=== PATIENT | male | born 1985 | race Caucasian/White ===

== ENCOUNTER 2018-11-25 17:23 | Emergency (ER) | payer SELFPAY ==
[2018-11-25 17:27] VITALS: BP 119/67; PULSE 60; TEMP 97.8; BMI 27.2
--- NOTE | 2018-11-25 18:26 | PDOC ---
History of Present Illness - General Chief Complaint: Pain, Acute Stated Complaint: ELBOW AND NECK PAIN Time Seen by Provider: 11/25/18 18:08 History Source: Patient Exam Limitations: Clinical Condition - History of Present Illness Initial Comments: 11/25/18 18:21 Patient with no significant past medical history present with complaint of pain to medial side of bilateral elbows for 2 weeks without any trauma or injury to elbow. Patient also reported pain to posterior neck area which he feels might be from neck spasm. Patient denies any trauma or injury. Patient took Tylenol for symptoms by report did not improved symptoms. Patient denies headache, dizziness, nausea or vomiting or change in vision. Patient denies any other symptoms Timing/Duration: other (2 weeks) Past History - Past Medical History Allergies/Adverse Reactions: Allergies Allergy/AdvReac Type Severity Reaction Status Date / Time No Known Allergies Allergy Verified 11/25/18 16:10 Home Medications: Ambulatory Orders Methocarbamol [Robaxin -] 500 mg PO BID #14 tablet 11/25/18 Naproxen 500 mg PO BID PRN #20 tablet 11/25/18 COPD: No GI Disorders: No Kidney Stones: No Thyroid Disease: No - Surgical History GI Surgery: No Neurologic Surgery: No - Immunization History Immunization Up to Date: No - Suicide/Smoking/Psychosocial Hx Smoking History: Never smoked Have you smoked in the past 12 months: No Information on smoking cessation initiated: No Hx Alcohol Use: No Drug/Substance Use Hx: No Review of Systems - Review of Systems Able to Perform ROS?: Yes Is the patient limited Albanian proficient: No Constitutional: No: Weakness HEENTM: No: Blurred Vision, Recent change in vision, Double Vision Respiratory: No: Symptoms reported Cardiac (ROS): No: Symptoms Reported ABD/GI: No: Nausea, Vomiting Musculoskeletal: Yes: See HPI, Joint Pain (b/l elbows), Muscle Pain (medial side of b/l elbows), Neck Pain (mild posterior neck aching pain), Joint Stiffness (neck). No: Joint Swelling, Muscle Weakness All Other Systems: Reviewed and Negative *Physical Exam - Vital Signs Last Vital Signs Temp Pulse Resp BP Pulse Ox 97.8 F 60 18 119/67 98 11/25/18 17:25 11/25/18 17:25 11/25/18 17:25 11/25/18 17:25 11/25/18 17:25 - Physical Exam Comments: 11/25/18 18:24 GENERAL: Well developed, well nourished. Awake and alert. No acute distress. CARDIOVASCULAR: Regular rate and rhythm. No murmurs, rubs, or gallops. PULMONARY: No evidence of respiratory distress. Lungs clear to auscultation bilaterally. No wheezing, rales or rhonchi. ABDOMINAL: Soft. Non-tender. Non-distended. No rebound or guarding. No organomegaly. Normoactive bowel sounds MUSCULOSKELETAL : mild tenderness medial epicondyles of b/l elbows. No bony deformities. no elbows swelling and effusion. FROM of neck. no tenderness to cervical spine EXTREMITIES: No cyanosis. No clubbing. No edema. SKIN: Warm and dry. Normal capillary refill. NEUROLOGICAL: Alert, awake, appropriate. No motor deficits in the lower extremities. Gait is normal without ataxia. PSYCHIATRIC: Cooperative. Good eye contact. Appropriate mood and affect. General Appearance: Yes: Nourished, Appropriately Dressed. No: Apparent Distress Moderate Sedation - Procedure Monitoring Vital Signs: Procedure Monitoring Vital Signs Temperature 97.8 F 11/25/18 17:25 Pulse Rate 60 11/25/18 17:25 Respiratory Rate 18 11/25/18 17:25 Blood Pressure 119/67 11/25/18 17:25 O2 Sat by Pulse Oximetry (%) 98 11/25/18 17:25 ED Treatment Course - RADIOLOGY Radiology Studies Ordered: Category Date Time Status ELBOW-LEFT [RAD] Stat Radiology 11/25/18 18:17 Ordered ELBOW-RIGHT [RAD] Stat Radiology 11/25/18 18:17 Ordered Medical Decision Making - Medical Decision Making 11/25/18 18:26 Patient with no significant past medical history present with complaint of pain to medial side of bilateral elbows for 2 weeks without any trauma or injury to elbow. Patient also reported pain to posterior neck area which he feels might be from neck spasm Exam significant for mild tenderness medial epicondyles of b/l elbows. No bony deformities. no elbows swelling and effusion. FROM of neck. no tenderness to cervical spine. symptoms likely neck strain with b/l medial epicondylitis. x- ray of b/l elbows ordered. treat based on imaging results 11/25/18 18:27 X-ray of bilateral elbows shows no acute pathology or fracture. Symptoms likely medial epicondylitis. Pateint is stable for discharge on NSAIDs and muscle relaxer with orthopedist follow-up. 11/25/18 18:42 *DC/Admit/Observation/Transfer Diagnosis at time of Disposition: Medial epicondylitis of both elbows Neck muscle strain Qualifiers: Encounter type: initial encounter Qualified Code(s): S16.1XXA - Strain of muscle, fascia and tendon at neck level, initial encounter - Discharge Dispostion Disposition: HOME Condition at time of disposition: Stable Decision to Admit order: No - Prescriptions Prescriptions: Methocarbamol [Robaxin -] 500 mg PO BID #14 tablet Naproxen 500 mg PO BID PRN #20 tablet PRN Reason: elbow pain - Referrals Referrals: Eugene Alba MD [Staff Physician] - - Patient Instructions Printed Discharge Instructions: DI for Medial Epicondylitis Additional Instructions: Your x-ray of elbow was normal. Take medication as prescribed. Apply heat to elbow 2-3 times a day for 5-10 minutes as needed for pain. Follow-up referred orthopedics if symptoms persist more than 4 days. - Post Discharge Activity
== END 2018-11-25 18:42 | disposition home or self-care (01) ==
LOC: JERFT 17:23
CPT/HCPCS: 73070-TC-LT-FY; 73070-TC-RT-FY; 99281-25

== ENCOUNTER 2018-12-07 03:52 | Emergency (ER) | payer SELFPAY ==
--- NOTE | 2018-12-07 04:04 | PDOC ---
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 patient was in ED 11/25 with the same issue, had unremarkable x rays of b/ l elbows and after diagnosis of b/l medial epicondylitis and neck spasm was dcd w NSAIDs and muscle relaxer. He was advised to f/u w ortho. Dr Alba saw patient in his office, reaffirmed the diagnosis and advised patient to continue above meds in addition to stretching. 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 He presents today due to worsening pain. Denies injury to elbows or neck, excessive exercise, numbness in fingers or radiating pain. 12/07/18 04:38 Past History - Past Medical History Allergies/Adverse Reactions: Allergies Allergy/AdvReac Type Severity Reaction Status Date / Time No Known Allergies Allergy Verified 12/07/18 04:30 Home Medications: Ambulatory Orders Naproxen 500 mg PO BID PRN #20 tablet 11/25/18 Cyclobenzaprine HCl [Flexeril 10 mg] 10 mg PO BID #60 tablet 12/07/18 COPD: No GI Disorders: No Kidney Stones: No Thyroid Disease: No - Surgical History GI Surgery: No Neurologic Surgery: No - Immunization History Immunization Up to Date: No - Suicide/Smoking/Psychosocial Hx Smoking History: Never smoked Have you smoked in the past 12 months: No Hx Alcohol Use: No Drug/Substance Use Hx: No Review of Systems - Review of Systems Able to Perform ROS?: Yes Is the patient limited Upper Sorbian proficient: No Constitutional: No: Chills, Fever Respiratory: No: Shortness of Breath Cardiac (ROS): No: Chest Pain, Edema, Lightheadedness ABD/GI: No: Abdominal Distended, Poor Appetite, Abdominal cramping : No: Dysuria Musculoskeletal: Yes: Joint Pain, Neck Pain. No: Back Pain, Muscle Pain, Muscle Weakness, Joint Stiffness Integumentary: No: Bruising, Erythema Neurological: No: Numbness, Paresthesia, Tingling, Tremors, Weakness Psychiatric: No: Anxiety *Physical Exam - Physical Exam General Appearance: Yes: Nourished, Appropriately Dressed. No: Apparent Distress HEENT: positive: EOMI. negative: Scleral Icterus (R), Scleral Icterus (L) Neck: positive: Tender (left trap ), Supple. negative: Lymphadenopathy (R), Lymphadenopathy (L), Thyromegaly Respiratory/Chest: positive: Lungs Clear, Normal Breath Sounds. negative: Chest Tender Cardiovascular: positive: Regular Rhythm, Regular Rate, S1, S2 Gastrointestinal/Abdominal: positive: Normal Bowel Sounds, Flat, Soft Musculoskeletal: positive: Other (L trapezius tenderness and spasm). negative: CVA Tenderness Extremity: positive: Other (b/l tenderness over medial epicondyles). 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 X rays from last visit reviewed. Patient given a L trap trigger point toradol injection. explained what exercises/stretches to do in order to alleviate golfers elbow. advised to f/u with Dr Alba for medial epicondyle injections *DC/Admit/Observation/Transfer Diagnosis at time of Disposition: Medial epicondylitis of both elbows, Medial epicondylitis - Discharge Dispostion Disposition: HOME Condition at time of disposition: Good Decision to Admit order: No - Prescriptions Prescriptions: Cyclobenzaprine HCl [Flexeril 10 mg] 10 mg PO BID #60 tablet - Referrals - Patient Instructions Additional Instructions: You have a muscle spasm in your left trapezius muscle and were given a Toradol injection for pain. Stop taking Robaxin and take Flexeril instead (do not drive while taking this medication because it can make you sleepy). Continue Naproxen (take on full stomach only). Follow up with Dr Alba for possible injections into the elbows. Continue doing exercises and stretches for "tennis elbow" - Post Discharge Activity
--- NOTE | 2018-12-07 04:06 | PDOC ---
Attending Attestation - Resident Resident Name: Summer Palomares - ED Attending Attestation I have performed the following: I have examined & evaluated the patient, The case was reviewed & discussed with the resident, I agree w/resident's findings & plan - HPI HPI: 12/07/18 04:48 Pt comes with bilateral MEDIAL epicondilitis aka golfer's elbow. He has been here in the past for the same and he has followed with Dr. Alba for the same. Pt will be given toradol here and he will get flexeril. We showed him stretching exercises for golfer's elbow. He understands that he needs to rest and ice and stop the repetitive flexion movements at work. Also pt knows that he can follow for physical rehab. He was suggested to follow with Dr. Alba for injection to the area of the epicondyle as needed. - Physicial Exam PE: 12/07/18 06:34 Pt has bilat medial epicondylitis. No rash, no bruises. Pt has FROM of his fingers and elbows and wrists and shoulders. - Medical Decision Making 12/07/18 06:35 Home with volar forearm stretching exercises, ice, rest, and muscle relaxants, OTC meds and follow with ortho
[2018-12-07] MEDS ORDERED: KETOROLAC TROMETHAMINE 30 MG/1 ML VIAL IM ONE ×2 (04:22)
[2018-12-07] MEDS ORDERED: KETOROLAC TROMETHAMINE 30 MG/1 ML VIAL ONE (04:29)
[2018-12-07 04:56] VITALS: BP 132/69; PULSE 82; TEMP 98.6; BMI 27.3
== END 2018-12-07 04:57 | disposition home or self-care (01) ==
LOC: JER 03:52
PROC: 3E0233Z Introduction of Anti-inflammatory into Muscle, Percutaneous Approach (ICD-10-PCS; principal; 2018-12-07)
DX: M77.02 Medial epicondylitis, left elbow (principal); M77.01 Medial epicondylitis, right elbow; M62.838 Other muscle spasm
CPT/HCPCS: 99281-25

== ENCOUNTER 2018-12-23 20:34 | Emergency (ER) | payer SELFPAY ==
--- NOTE | 2018-12-23 20:43 | PDOC ---
Rapid Medical Evaluation Time Seen by Provider: 12/23/18 20:42 Medical Evaluation: Allergies Allergy/AdvReac Type Severity Reaction Status Date / Time No Known Allergies Allergy Verified 12/07/18 04:30 12/23/18 20:42 I have performed a brief in-person evaluation of this patient. The patient presents with a chief complaint of: back pain with radiation down leg x 3 days ago. Denies fall or injury. Denies dysuria Pertinent physical exam findings: NAD even and unlabored breathing no midspinal tenderness, no cva tenderness I have ordered the following: analgesia The patient will proceed to the ED for further evaluation.
[2018-12-23 20:47] VITALS: BP 117/68; PULSE 70; TEMP 98.1; BMI 29.0
--- NOTE | 2018-12-23 23:25 | PDOC ---
History of Present Illness - General Chief Complaint: Back Pain Stated Complaint: BACK PAIN Time Seen by Provider: 12/23/18 20:42 History Source: Patient - History of Present Illness Initial Comments: 12/24/18 00:06 33-year-old male complaining of lower back pain for the last 2 days. 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 Denies numbness or tingling to the lower extremity, saddle anesthesia. Past History - Past Medical History Allergies/Adverse Reactions: Allergies Allergy/AdvReac Type Severity Reaction Status Date / Time No Known Allergies Allergy Verified 12/23/18 20:47 Home Medications: Ambulatory Orders Naproxen 500 mg PO BID PRN #20 tablet 11/25/18 Cyclobenzaprine HCl [Flexeril 10 mg] 10 mg PO BID #60 tablet 12/07/18 Cyclobenzaprine HCl [Flexeril -] 10 mg PO BID PRN #10 tablet 12/24/18 Ibuprofen 600 mg PO QID PRN #20 tablet 12/24/18 COPD: No GI Disorders: No Kidney Stones: No Thyroid Disease: No - Surgical History GI Surgery: No Neurologic Surgery: No - Immunization History Immunization Up to Date: No - Suicide/Smoking/Psychosocial Hx Smoking History: Never smoked Have you smoked in the past 12 months: No Hx Alcohol Use: No Drug/Substance Use Hx: No Review of Systems - Review of Systems Able to Perform ROS?: Yes Is the patient limited Chinese proficient: No Constitutional: No: Symptoms Reported, See HPI, Chills, Diaphoresis, Fever, Loss of Appetite, Malaise, Night Sweats, Weakness, Weight Stable, Unintentional Wgt. Loss, Unexplained wgt Loss, Other Musculoskeletal: Yes: Back Pain. No: Symptoms Reported, See HPI, Gout, Joint Pain, Joint Swelling, Muscle Pain, Muscle Weakness, Neck Pain, Joint Stiffness, Other Integumentary: No: Symptoms Reported, See HPI, Bruising, Change in Color, Change in Hair/Nails, Dryness, Erythema, Flushing, Lesions, Lumps, Pallor, Pruritus, Rash, Sweating, Other *Physical Exam - Vital Signs Last Vital Signs Temp Pulse Resp BP Pulse Ox 98.1 F 70 18 117/68 98 12/23/18 20:41 12/23/18 20:41 12/23/18 20:41 12/23/18 20:41 12/23/18 20:41 - Physical Exam General Appearance: Yes: Appropriately Dressed Respiratory/Chest: positive: Lungs Clear, Normal Breath Sounds Gastrointestinal/Abdominal: positive: Normal Bowel Sounds, Soft Musculoskeletal: positive: Normal Inspection, Muscle Spasm (lumbar area tenderness, paraspinal area) Extremity: positive: Normal Capillary Refill, Normal Inspection, Normal Range of Motion Integumentary: positive: Normal Color, Dry, Warm Neurologic: positive: Fully Oriented, Alert, Normal Mood/Affect Moderate Sedation - Procedure Monitoring Vital Signs: Procedure Monitoring Vital Signs Temperature 98.1 F 12/23/18 20:41 Pulse Rate 70 12/23/18 20:41 Respiratory Rate 18 12/23/18 20:41 Blood Pressure 117/68 12/23/18 20:41 O2 Sat by Pulse Oximetry (%) 98 12/23/18 20:41 *DC/Admit/Observation/Transfer Diagnosis at time of Disposition: Back pain at L4-L5 level - Discharge Dispostion Disposition: HOME - Prescriptions Prescriptions: Cyclobenzaprine HCl [Flexeril -] 10 mg PO BID PRN #10 tablet PRN Reason: Muscle Spasms Ibuprofen 600 mg PO QID PRN #20 tablet PRN Reason: Back Pain - Referrals Referrals: Hans Samuels MD [Staff Physician] - Call tomorrow [facility] [Outside] - Call tomorrow - Patient Instructions Printed Discharge Instructions: Low Back Pain, Back Pain (Alternative Therapy) Additional Instructions: apply ice / heat to the area. do light stretches. follow up with an orthopedic doctor as soon as possible. [facility] care clinic [address] [place] [address] Medical: Additional Instructions: * Please call your personal physician to report your Emergency Department visit and to report your progress, if any. * If there is no improvement in symptoms in 2 days call your physician. * Return to the Emergency Department for any worsening symptoms. - Post Discharge Activity Forms/Work/School Notes: Back to Work
[2018-12-23] MEDS ORDERED: diazePAM 5 MG TABLET PO ONE (23:33)
[2018-12-23] MEDS ORDERED: KETOROLAC TROMETHAMINE 30 MG/1 ML VIAL ONE (23:45)
[2018-12-23] MEDS ORDERED: diazePAM 5 MG TABLET ONE (23:45)
[2018-12-23] MEDS ORDERED: KETOROLAC TROMETHAMINE 30 MG/1 ML VIAL IM ONE (23:48)
== END 2018-12-24 00:27 | disposition home or self-care (01) ==
LOC: JER 20:34
PROC: 3E0233Z Introduction of Anti-inflammatory into Muscle, Percutaneous Approach (ICD-10-PCS; principal; 2018-12-23)
DX: M54.5 Low back pain (principal)
CPT/HCPCS: 99281-25